=== PATIENT | male | born 1950 | race Hispanic/Latino ===

== ENCOUNTER → 2018-12-14 | Outpatient (CLI) | payer OTHER | END | disposition home or self-care (01) | LOC: OIH 12:45 | PROVIDERS: ATTEND Internal Medicine | DX: I70.0 Atherosclerosis of aorta (principal); I10 Essential (primary) hypertension | CPT/HCPCS: 71046 ==

== ENCOUNTER → 2019-01-01 | Outpatient (CLI) | payer OTHER ==
[~2019-01-01] MED LIST: REGADENOSON 0.4 MG/5 ML PF SYG IVP SCH
== END | disposition home or self-care (01) ==
LOC: SHCH 08:43
PROVIDERS: ATTEND Internal Medicine Cardiovascular Disease
DX: R06.09 Other forms of dyspnea (principal); I20.9 Angina pectoris, unspecified
CPT/HCPCS: 78452; 93017; 96374; A9500 ×2; J2785

== ENCOUNTER 2019-08-10 06:39 | Day surgery (SDC) | payer OTHER ==
[~2019-08-10] VITALS: Ht 167.6 cm; Wt 106.1 kg
[~2019-08-10 06:39] MED LIST changes: +ALOG25TA2 PO; +ASPI-555 PO; +BRIMONIDINE; +DULO20CA18 PO; +LATANOPROST; +LEVO25TA54 PO; +METF-446 PO; +MULTIVITAMIN; +REFRESH; -REGADENOSON 0.4 MG/5 ML PF SYG IVP SCH; +SAXA5TAB PO; +SIMV80TA91 PO; +SODIUM CHLORIDE 0.9% 1000ML 1,000 ML IV ONE; +SULFAD500 PO; +TIOT4MIS3 IH
[2019-08-10 07:28] VITALS: BP 139/82
[2019-08-10] MEDS ORDERED: PROPOFOL 10 MG/ML 20ML VIAL IV ONE ×2 (09:20)
[2019-08-10 09:32] VITALS: BP 136/82
[2019-08-10 09:37] VITALS: BP 126/82
[2019-08-10 09:42] VITALS: BP 132/82
[2019-08-10 09:47] VITALS: BP 134/82
--- NOTE | 2019-08-10 09:50 | NUR ---
dc dc instructions given to patients spouse, instructed to f/u with dr. kahn. to continue home meds. spouse verbalized understanding. patient waiting for ride to go home
--- NOTE | 2019-08-10 10:55 | NUR ---
dc pt dc home via [facility], no distress noted. denied any pain or discomforts accompanied by spouse
== END 2019-08-10 10:55 | disposition home or self-care (01) ==
LOC: ENDO 06:39 → DAH 06:39 → ENDO 10:55
PROVIDERS: ATTEND Internal Medicine
DX: Z12.11 Encounter for screening for malignant neoplasm of colon (principal); D12.0 Benign neoplasm of cecum; D12.2 Benign neoplasm of ascending colon; K29.50 Unspecified chronic gastritis without bleeding; K21.0 Gastro-esophageal reflux disease with esophagitis; K29.80 Duodenitis without bleeding; K57.30 Diverticulosis of large intestine without perforation or abscess without bleeding; K64.0 First degree hemorrhoids; E11.9 Type 2 diabetes mellitus without complications; M06.9 Rheumatoid arthritis, unspecified; G47.33 Obstructive sleep apnea (adult) (pediatric); J84.10 Pulmonary fibrosis, unspecified; Z79.82 Long term (current) use of aspirin; Z79.899 Other long term (current) drug therapy; Z87.891 Personal history of nicotine dependence; Z79.84 Long term (current) use of oral hypoglycemic drugs; E78.00 Pure hypercholesterolemia, unspecified; E03.9 Hypothyroidism, unspecified; Z80.0 Family history of malignant neoplasm of digestive organs; Z96.651 Presence of right artificial knee joint; Z98.890 Other specified postprocedural states; Z86.010 Personal history of colon polyps; Z99.89 Dependence on other enabling machines and devices
CPT/HCPCS: 43239; 45380; 45385; 82948 ×2; 88305; A4215; A4221; A4222; A4223; A4606; A4663; A6444; J2704 ×2; J7030

== ENCOUNTER → 2020-05-08 | Outpatient (CLI) | payer OTHER ==
[~2020-05-08] MED LIST changes: -ASPI-555 PO; +ASPI-556 PO; -SAXA5TAB PO; -SODIUM CHLORIDE 0.9% 1000ML 1,000 ML IV ONE; -TIOT4MIS3 IH
== END | disposition home or self-care (01) ==
LOC: SHCH 07:56
PROVIDERS: ATTEND Internal Medicine Cardiovascular Disease
DX: I65.23 Occlusion and stenosis of bilateral carotid arteries (principal)
CPT/HCPCS: 93880

== ENCOUNTER 2021-02-28 05:48 | Day surgery (SDC) | payer OTHER ==
[~2021-02-28] VITALS: Ht 167.6 cm; Wt 99.8 kg
[2021-02-28] VITALS (8 sets, daily range): BP systolic 104–126; BP diastolic 64–76
[2021-02-28] MEDS ORDERED: SODIUM CHLORIDE 0.9% 1000ML 1,000 ML IV ONE (06:14)
[2021-02-28] MEDS ORDERED: PANT40TA54 PO (06:55)
[2021-02-28] MEDS ORDERED: THEO400T3 PO (06:55)
[2021-02-28] MEDS ORDERED: LIDOCAINE HCL 1% 20 ML VIAL ONE (07:05)
[2021-02-28] MEDS ORDERED: PROPOFOL 10 MG/ML 20ML VIAL IV ONE (07:05)
== END 2021-02-28 08:20 | disposition home or self-care (01) ==
LOC: ENDO 05:48 → DAH 05:48 → ENDO 08:20
PROVIDERS: ATTEND Internal Medicine Gastroenterology
DX: K21.00 Gastro-esophageal reflux disease with esophagitis, without bleeding (principal); Z20.822 Contact with and (suspected) exposure to COVID-19; K44.9 Diaphragmatic hernia without obstruction or gangrene; K29.70 Gastritis, unspecified, without bleeding; K22.8 Other specified diseases of esophagus; I10 Essential (primary) hypertension; E03.9 Hypothyroidism, unspecified; M06.9 Rheumatoid arthritis, unspecified; E78.5 Hyperlipidemia, unspecified; E66.9 Obesity, unspecified; E78.00 Pure hypercholesterolemia, unspecified; G47.33 Obstructive sleep apnea (adult) (pediatric); Z79.84 Long term (current) use of oral hypoglycemic drugs; Z79.82 Long term (current) use of aspirin; Z79.899 Other long term (current) drug therapy; Z87.891 Personal history of nicotine dependence; Z86.010 Personal history of colon polyps; Z68.37 Body mass index [BMI] 37.0-37.9, adult
CPT/HCPCS: 43239; 82948 ×2; A4215 ×2; A4221; A4222; A4223; A4606; A4620; A4657; A4663; C9803; J2704; J7030; U0003